=== PATIENT | female | born 1970 | race Hispanic/Latino ===

== ENCOUNTER 2022-06-17 16:27 | Emergency (ER) | payer OTHER ==
[~2022-06-17] VITALS: Ht 157.5 cm; Wt 79.4 kg
[2022-06-17] MEDS ORDERED: TAMIFLU75 MG PO (17:16)
[2022-06-17 17:25] VITALS: BP 157/105
[2022-06-17] MEDS ORDERED: ONDANSETRON ODT4 MG PO (17:26)
== END 2022-06-17 17:49 | disposition home or self-care (01) ==
LOC: FSED 17:22
DX: R05.9 Cough, unspecified (principal); J10.1 Influenza due to other identified influenza virus with other respiratory manifestations; B34.9 Viral infection, unspecified; R03.0 Elevated blood-pressure reading, without diagnosis of hypertension; I10 Essential (primary) hypertension
CPT/HCPCS: 83518; 87400; 99282

== ENCOUNTER 2023-07-03 11:58 | Emergency (ER) | payer OTHER ==
[~2023-07-03] VITALS: Ht 165.1 cm; Wt 77.1 kg
[~2023-07-03 11:58] MED LIST: ONDANSETRON ODT4 MG PO; TAMIFLU75 MG PO
[2023-07-03 13:20] VITALS: O2SAT 99
== END 2023-07-03 13:30 | disposition home or self-care (01) ==
LOC: FSED 12:05
DX: R42 Dizziness and giddiness (principal); R07.9 Chest pain, unspecified
CPT/HCPCS: 71046; 80053; 82553; 84484; 85025; 93005; 99284